=== PATIENT | male | born 1990 | race Caucasian/White ===

== ENCOUNTER 2024-06-30 10:49 | Emergency (ER) | payer OTHER, SELFPAY ==
--- NOTE | ~2024-06-30 | XR_ITS ---
EXAMINATION: XR foot LT min 3V DATE: 06/30/2024 11:21 INDICATION: Inversion injury with lateral proximal tarsal pain at the left foot TECHNIQUE: Dorsoplantar, two oblique and lateral views of the left foot were obtained. COMPARISON: None. FINDINGS: Bone alignment is normal. Subtle tiny linear calcific densities along the dorsal aspect of the navicu la suspicious for likely avulsion fracture fragments but without definitive donor site. There is some overlying soft tissue swelling. Small triangular ossific density projecting along the distal dorsal margin of the anterior process of the calcaneus on the lateral projection suspicious for a minimally distracted avulsion fracture either from the anterior process of the adjacent proximal aspect of the cuboid.. No other fractures identified. Joint spaces are normal. IMPRESSION: 1. Tiny likely flake-like capsular avulsion fracture fragments along the dorsal aspect of the navicul a. 2. Small minimally distracted avulsion fracture fragment arising from the dorsal anterior process of the calcaneus or the adjacent posterior margin of the proximal cuboid. Reviewed, dictated and finalized at location A. CTOR CARD IMPRESSION: 1. Tiny likely flake-like capsular avulsion fracture fragments along the dorsal aspect of the navicula. 2. Small minimally distracted avulsion fracture fragment arising from the dorsa l anterior process of the calcaneus or the adjacent posterior margin of the pro ximal cuboid.
[2024-06-30 11:00] VITALS: BP 134/70; PULSE 81; RESP 16; TEMP 37; O2SAT 99
[2024-06-30 11:15] VITALS: BP 134/70; PULSE 81; RESP 16; TEMP 37; O2SAT 99
--- NOTE | 2024-06-30 11:15 | ED_ITS ---
HPI - Extremity Injury (Lower) General Chief Complaint: Extremity Injury, Lower Stated Complaint: Left Ankle Injury History of Present Illness HPI Narrative: Patient presents for evaluation of left foot pain. Patient states last night he stepped off and rolled his left foot. Slight swelling to the area no deformity noted good pedal pulse patient denies any ankle pain or discomfort. Related Data Home Medications Medication Instructions Recorded Confirmed No Home Medications 06/30/24 06/30/24 Allergies Allergy/AdvReac Type Severity Reaction Status Date / Time No Known Allergies Allergy Unverified 06/30/24 10:51 Review of Systems Review of Systems: CONSTITUTIONAL: Denies chills, or sweats. Reports fever and generalized body aches EYES: Denies visual changes, redness, or discharge. ENT: Denies otalgia. Reports nasal congestion runny nose and sore throat CARDIOVASCULAR: Denies chest pain, palpitations, or edema. RESPIRATORY: Denies dyspnea. Reports occasional cough GASTROINTESTINAL: Denies abdominal pain, nausea, vomiting, or diarrhea. GENITOURINARY: Denies dysuria or hematuria. SKIN: Denies rash or itching. MUSCULOSKELETAL: Denies back pain, joint pain, or myalgia. Reports generalized body aches NEUROLOGIC: Denies headache, numbness, or weakness. PSYCHIATRIC: Denies anxiety or depression. PMFSH Social History Social History Smoking status: Never smoker Comments At time of signature, agree with nursing past medical, surgical, social and family history. There is no relevant family history pertinent to the presenting complaint Exam Narrative: The patient is a well-developed, well-nourished in no acute distress. SKIN: Skin is warm and dry without erythema, swelling or exudate. There is good turgor. No tenting. HEAD: Atraumatic. Normocephalic. No temporal or scalp tenderness. EYES: Moist and bright. Sclera and conjunctivae normal. No discharge. PERRLA. Extraocular motions intact. Gross visual acuity intact. EARS: Pinna is normal shape and contour. Clear external auditory canals. TM pearly scherer with good cone of light, no erythema or suppuration. Bilateral cerumen noted no gross hearing deficit. NOSE: pink, moist mucosa with good air movement. Clear rhinorrhea without nasal flaring. Septum midline. Mouth: moist mucous membranes. THROAT; mild erythema noted to posterior oropharynx with moderate postnasal drainage. Without exudate or ulceration.. Uvula midline. Normal movement of sof t palate. NECK: Supple and nontender with full range of motion without discomfort. No meningeal signs. LUNGS: Equal and bilateral breath sounds without wheezes, rales or rhonchi. CHEST: The chest wall is without retractions or use of accessory muscles. HEART: Has a regular rate and rhythm without murmur, gallops, click or rub. ABDOMEN: Soft, nontender with positive active bowel sounds. No rebound tenderness. EXTREMITIES: Without cyanosis, clubbing or edema. Equal 2+ distal pulses and 2 second capillary refill noted. ANKLE EXAM SKIN INTACT. NORMAL DP PULSE, NORMAL CAP REFILL. NORMAL SENSATION. NEUROLOGIC: alert, active, . The patient moves all extremities with normal muscle strength. Normal muscle tone is noted. Normal coordination is noted. NO focal neurological findings noted. Course Course Level of Care: Express Care Visit Vital Signs Vital signs: Vital Signs Temperature 37.0 C 06/30/24 11:00 Pulse Rate 81 06/30/24 11:00 Respiratory Rate 16 06/30/24 11:00 Blood Pressure 134/70 06/30/24 11:00 Pulse Oximetry 99 06/30/24 11:00 Oxygen Delivery Room Air 06/30/24 11:00 Temperature 37.0 C 06/30/24 11:00 Pulse Rate 81 06/30/24 11:00 Respiratory Rate 16 06/30/24 11:00 Blood Pressure 134/70 06/30/24 11:00 Pulse Oximetry 99 06/30/24 11:00 Oxygen Delivery Room Air 06/30/24 11:00 Please SEJAL schedule a followup visit with your personal physician for further evaluation and treatment. Including recheck and discussion of your blood pressure. If your symptoms persist, change or worsen significantly before you can contact your personal physician then please, without delay, go to the emergency department for further evaluation MDM - Extremity Injury (Lower) Imaging Data Radiologist's impression: IMPRESSION: 1. Tiny likely flake-like capsular avulsion fracture fragments along the dorsal aspect of the navicula. 2. Small minimally distracted avulsion fracture fragment arising from the dorsal anterior process of the calcaneus or the adjacent posterior margin of the proximal cuboid. Discharge Plan Discharge Clinical Impression: Foot sprain, Sprain of foot, left, Closed navicular fracture of left ankle Patient Disposition: Home, Self-Care Condition: Stable Instructions: Antibiotic Form, Foot Sprain (ED) Additional Instructions: Ice to the area 20-30 minutes 4-6 times a day Elevate above heart wear cast shoe until discontinued by orthopedic provider Call orthopedic provider office thing Tuesday for follow-up appointment Tylenol for lesser pain Ibuprofen regularly for the next 2-3 days for the inflammation Follow-up with PCP if further problems or concerns -If you have any worsening of symptoms or any other concerns please go to the ED immediately. Prescriptions: No Action No Home Medications Follow-up/Referrals: Solo,Nicole Lew NP [Primary Care Provider] - Marek Maldonado MD [Physician] - 2 Days (Call office thing Tuesday morning for follow-up appointment) Stand Alone Forms: Work/School Release IP
--- NOTE | 2024-06-30 13:14 | PC.NURSE ---
PT TAKEN TO RADIOLOGY IN WHEELCHAIR
== END 2024-06-30 12:16 | disposition home or self-care (01) ==
PROVIDERS: Emergency Provider Nurse Practitioner Family; PCP Nurse Practitioner Family
DX: S82.892A Other fracture of left lower leg, initial encounter for closed fracture (principal); S93.602A Unspecified sprain of left foot, initial encounter; X50.0XXA Overexertion from strenuous movement or load, initial encounter
CPT/HCPCS: 73630; 99214; G0463